=== PATIENT | female | born 1995 | race Caucasian/White ===

== ENCOUNTER → 2016-10-21 | Outpatient (CLI) | payer BC, OTHER ==
--- NOTE | 2016-10-21 17:59 | Diagnostic Imaging Report ---
Transabdominal and transvaginal pelvic ultrasound. INDICATION: Pelvic pain. FINDINGS: The uterus is 7.1 x 3.8 x 3.2 cm. The endometrial stripe is 0.1 cm in thickness. There is no focal mass seen. The right ovary is 3 x 1.8 x 1.6 cm. The left ovary is 2.7 x 2 x 1.2 cm. Arterial and venous waveforms are demonstrated over both ovaries. IMPRESSION: Unremarkable exam. Dictated by: Dictated on workstation # [id number]
== END ==
LOC: RAD 16:08
PROVIDERS: ATTEND Nurse Practitioner
DX: R10.2 Pelvic and perineal pain (principal)
CPT/HCPCS: 76830; 76856

== ENCOUNTER 2018-08-12 20:43 | Emergency (ER) | payer BC ==
[~2018-08-12] VITALS: Ht 157.5 cm; Wt 62.6 kg
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
--- OUTSIDE RECORDS SUMMARY | 2018-08-12 20:46 | XMS REPORT ---
Author Author GUANAKITO LIM Organization [facility] Address [address] [place] [address] Care Team Providers Care Instructor Flying Name Role Phone GUANAKITO LIM Unavailable PROBLEMS Type Condition ICD9-CM Code [id number] Code Onset Dates Condition Status SNOMED Code Problem Alcohol abuse F10.10 Active [id number] ALLERGIES Unknown Allergies SOCIAL HISTORY No smoking Hx information available PLAN OF CARE Activity Details Follow Up prn Reason: VITAL SIGNS MEDICATIONS Unknown Medications RESULTS Name Result Date Reference Range URINE DRUG SCREEN (IN HOUSE) 2016-04-01 Lot # [id number] Exp date 09/2017 Control + COCAINE neg AMPH neg MTD neg THC neg OPIATE neg BENZO neg PCP neg BAR neg OXY neg MAMP neg TCA n/a BUP neg MDMA neg PROCEDURES Procedure Date Ordered Related Diagnosis Body Site DRUG SCREEN NON TLC DEVICES Apr 01, 2016 AUDIT/DAST, OVER 30 MIN Apr 01, 2016 IMMUNIZATIONS No Known Immunizations
--- NOTE | 2018-08-12 21:14 | ED Abdominal Pain ---
General Chief Complaint: Abdominal/GI Problems Stated Complaint: L SIDE ABD PAIN Nursing Triage Note: PATIENT STATES THAT SHE HAS BEEN HAVING LLQ PAIN FOR SEVERAL DAYS. SHE TOOK LAXATIVE ON WEDNESDAY THINKING SHE MIGHT BE CONSTIPATED. LAST BM WEDNESDAY. SHE STATES IT IS NOW PAINFUL TO SIT AND/OR WALK. Sepsis Screen: No Definite Risk Source of Information: Patient Exam Limitations: No Limitations History of Present Illness Date Seen by Provider: Aug 12, 2018 Time Seen by Provider: 21:12 Initial Comments To ER with c/o LLQ abdominal pain x5 days. No nausea or vomiting. Pain worsens with straining to have bowel movement. States she is always constipated, nothing worse than usual. No history of this pain or of ovarian cysts. Timing/Duration: 4-5 Days Severity/Quality: Moderate Location: LLQ Radiation: No Radiation Activities at Onset: None Associated Symptoms: No Fever/Chills, No Nausea/Vomiting Allergies and Home Medications Allergies Coded Allergies: hydrocodone (Verified Allergy, Unknown, 08/12/18) Patient Home Medication List Home Medication List Reviewed: Yes Review of Systems Review of Systems Constitutional: see HPI; No chills, No fever EENTM: No Symptoms Reported Respiratory: No Symptoms Reported Cardiovascular: No Symptoms Reported Gastrointestinal: See HPI, Abdominal Pain, Constipated; Denies Diarrhea, Denies Nausea Genitourinary: No Symptoms Reported Musculoskeletal: no symptoms reported Skin: no symptoms reported Psychiatric/Neurological: No Symptoms Reported Endocrine: No Symptoms Reported Hematologic/Lymphatic: No Symptoms Reported Past Todmqfh-Izezmy-Nwgvje Hx Patient Social History Recent Foreign Travel: No Contact w/Someone Who Travel: No Recent Infectious Disease Expo: No Physical Exam Vital Signs Vital Signs - First Documented 08/12/18 20:50 Temp 97.6 Pulse 79 Resp 18 B/P (MAP) 105/69 (81) Pulse Ox 98 O2 Delivery Room Air Capillary Refill : Less Than 3 Seconds Height/Weight/BMI Height: 5'2.00" Weight: 138lbs. 0oz. 62.426221oo; BMI Method:Stated General Appearance: WD/WN, no apparent distress HEENT: PERRL/EOMI, normal ENT inspection Neck: non-tender, full range of motion Respiratory: no respiratory distress, no accessory muscle use Cardiovascular: regular rate, rhythm, no edema, no murmur Gastrointestinal: normal bowel sounds, soft, tenderness Extremities: normal range of motion, non-tender Neurologic/Psychiatric: alert, normal mood/affect, oriented x 3 Skin: normal color, warm/dry Progress/Results/Core Measures Results/Orders Lab Results Laboratory Tests Test 08/12/18 21:30 08/12/18 22:45 Range/Units White Blood Count 12.0 H 4.3-11.0 10^3/uL Red Blood Count 4.67 4.35-5.85 10^6/uL Hemoglobin 13.5 11.5-16.0 G/DL Hematocrit 40 35-52 % Mean Corpuscular Volume 86 80-99 FL Mean Corpuscular Hemoglobin 29 25-34 PG Mean Corpuscular Hemoglobin Concent 34 32-36 G/DL Red Cell Distribution Width 13.8 10.0-14.5 % Platelet Count 345 130-400 10^3/uL Mean Platelet Volume 9.0 7.4-10.4 FL Neutrophils (%) (Auto) 60 42-75 % Lymphocytes (%) (Auto) 30 12-44 % Monocytes (%) (Auto) 8 0-12 % Eosinophils (%) (Auto) 2 0-10 % Basophils (%) (Auto) 0 0-10 % Neutrophils # (Auto) 7.1 1.8-7.8 X 10^3 Lymphocytes # (Auto) 3.6 1.0-4.0 X 10^3 Monocytes # (Auto) 0.9 0.0-1.0 X 10^3 Eosinophils # (Auto) 0.2 0.0-0.3 10^3/uL Basophils # (Auto) 0.0 0.0-0.1 10^3/uL Sodium Level 139 135-145 MMOL/L Potassium Level 3.4 L 3.6-5.0 MMOL/L Chloride Level 105 98-107 MMOL/L Carbon Dioxide Level 22 21-32 MMOL/L Anion Gap 12 5-14 MMOL/L Blood Urea Nitrogen 14 7-18 MG/DL Creatinine 0.79 0.60-1.30 MG/DL Estimat Glomerular Filtration Rate > 60 BUN/Creatinine Ratio 18 Glucose Level 76 70-105 MG/DL Calcium Level 9.7 8.5-10.1 MG/DL Corrected Calcium 9.4 8.5-10.1 MG/DL Total Bilirubin 0.2 0.1-1.0 MG/DL Aspartate Amino Transf (AST/SGOT) 29 5-34 U/L Alanine Aminotransferase (ALT/SGPT) 41 0-55 U/L Alkaline Phosphatase 85 40-136 U/L Total Protein 7.4 6.4-8.2 GM/DL Albumin 4.4 3.2-4.5 GM/DL Serum Test, Qualitative NEGATIVE NEGATIVE My Orders Orders - FRANKLIN OSULLIVAN APRN Cbc With Automated Diff (08/12/18 21:02) Comprehensive Metabolic Panel (08/12/18 21:02) Hcg,Qualitative Serum (08/12/18 21:02) Ua Culture If Indicated (08/12/18 21:02) Iv Heplock-Insert (Order) (08/12/18 21:02) Ketorolac Injection (Toradol Injection) (08/12/18 21:15) Ct Abd/Pelvis Wo(Kidney Stone) (08/12/18 21:32) Rx-Tramadol Hcl (Rx-Ultram) (08/12/18 22:08) Medications Given in ED Current Medications Medications Dose Ordered Sig/Deepak Route Start Time Stop Time Status Last Admin Dose Admin Ketorolac Tromethamine 15 mg ONCE ONCE IVP 08/12/18 21:15 08/12/18 21:16 DC 08/12/18 21:34 15 MG Vital Signs/I&O 08/12/18 20:50 Temp 97.6 Pulse 79 Resp 18 B/P (MAP) 105/69 (81) Pulse Ox 98 O2 Delivery Room Air Blood Pressure Mean: 81 Departure Communication (Admissions) 2207-Pain present x1 week, US unavailable here at this time. Will need to have this evaluated with US on Wednesday. Pain has been present x5 days at this time. 2301-Left ovarian cyst on CT [id number]. Her pain is much improved she states after just toradol. Impression Primary Impression: Cyst of left ovary Disposition: HOME, SELF-CARE Condition: Stable Departure-Patient Inst. Decision time for Depature: 22:10 Referrals: BINH CARRENO DENNIS G MD SALVADOR, LISA A MD (PCP/Family) Primary Care Physician VETO MADRID ANGELA C DO Patient Instructions: Ovarian Cyst (DC) Add. Discharge Instructions: 1. Return to ER for any intolerable pain, lightheadedness, weakness, or other concerns. Follow up with your doctor on Wednesday to schedule an ultrasound of the ovary. Pain medication as needed. All discharge instructions reviewed with patient and/or family. Voiced understanding. Scripts No Active Prescriptions or Reported Meds Copy Copies To 1: LISANDRO SANCHES MD, PETER J APRN Aug 12, 2018 21:14
[2018-08-12] MEDS ORDERED: KETOROLAC 30 MG/ML VIAL IVP ONE (21:15)
[2018-08-12 21:40] LABS: BASOPHILS % (AUTO) 0 % (0-10); EOSINOPHILS # (AUTO) 0.2 10^3/uL (0.0-0.3); EOSINOPHILS % (AUTO) 2 % (0-10); HEMATOCRIT 40 % (35-52); HEMOGLOBIN 13.5 G/DL (11.5-16.0); LYMPHOCYTES # (AUTO) 3.6 X 10^3 (1.0-4.0); LYMPHOCYTES % (AUTO) 30 % (12-44); MEAN CORPUSCULAR HEMOGLOBIN 29 PG (25-34); MEAN CORPUSCULAR HGB CONC 34 G/DL (32-36); MEAN CORPUSCULAR VOLUME 86 FL (80-99); MONOCYTES # (AUTO) 0.9 X 10^3 (0.0-1.0); MONOCYTES % (AUTO) 8 % (0-12); NEUTROPHILS # (AUTO) 7.1 X 10^3 (1.8-7.8); NEUTROPHILS % (AUTO) 60 % (42-75); PLATELET COUNT 345 10^3/uL (130-400); RED CELL DISTRIBUTION WIDTH 13.8 % (10.0-14.5)
[2018-08-12 21:57] LABS: ALANINE AMINOTRANSFERASE 41 U/L (0-55); ALBUMIN 4.4 GM/DL (3.2-4.5); ALKALINE PHOSPHATASE 85 U/L (40-136); BILIRUBIN,TOTAL 0.2 MG/DL (0.1-1.0); BUN/CREATININE RATIO 18; CALCIUM 9.7 MG/DL (8.5-10.1); CARBON DIOXIDE 22 MMOL/L (21-32); CHLORIDE 105 MMOL/L (98-107); CREATININE SERUM 0.79 MG/DL (0.60-1.30); GFR ESTIMATED > 60; GLUCOSE 76 MG/DL (70-105); POTASSIUM 3.4 MMOL/L (3.6-5.0); SODIUM 139 MMOL/L (135-145); TOTAL PROTEIN 7.4 GM/DL (6.4-8.2)
[2018-08-12] MEDS ORDERED: RX-TRAMADOL 50 MG (ULTRAM) TAB PPK#4 PO STA (22:08)
[2018-08-12 22:51] LABS: BILIRUBIN,URINE NEGATIVE (NEGATIVE); CLARITY,URINE VERY CLOUDY; COLOR,URINE YELLOW; GLUCOSE, URINE (UA) NEGATIVE (NEGATIVE); KETONES,URINE NEGATIVE (NEGATIVE); LEUKOCYTE ESTERASE ,URINE 3+ (NEGATIVE); NITRITE,URINE NEGATIVE (NEGATIVE); PH,URINE 6.5 (5-9); PROTEIN,URINE 2+ (NEGATIVE); UROBILINOGEN,URINE NORMAL (NORMAL)
[2018-08-12 23:02] LABS: BACTERIA,URINE LARGE /HPF; WBC,URINE 50-100 /HPF
[2018-08-12 23:03] LABS: SQUAMOUS EPITHELIAL CELL,UR TNTC /HPF
[2018-08-12 23:07] VITALS: BP 105/69
[2018-08-12] MEDS ORDERED: CEFU250T80 PO (23:07)
[2018-08-12] MEDS ORDERED: CEPHALEXIN 250 MG (KEFLEX) CAP PO ONE (23:15)
--- NOTE | 2018-08-13 06:19 | Diagnostic Imaging Report ---
PROCEDURE: CT urinary tract, rule out kidney stone. TECHNIQUE: Multiple contiguous axial images were obtained through the abdomen and pelvis without the use of intravenous contrast. Auto Exposure Controls were utilized during the CT exam to meet ALARA standards for radiation dose reduction. INDICATION: Pain, constipation COMPARISON: None available FINDINGS: The lung bases are clear. The unenhanced liver, spleen, adrenal glands, and pancreas are unremarkable. The gallbladder is decompressed, therefore not well evaluated. The bilateral kidneys and ureters are unremarkable. A 6.1 cm left ovarian/adnexal cyst. The uterus and right adnexa are unremarkable. The urinary bladder is unremarkable. No aneurysmal dilatation of the abdominal aorta. The appendix is unremarkable. No bowel obstruction or pneumatosis. No significant adenopathy, free air, or free fluid throughout the abdomen or pelvis. No acute osseous abnormality. IMPRESSION: A 6 cm left ovarian/adnexal cyst. This may simply relate to a physiologic cyst, though followup is recommended. Recommend sonographic followup to ensure resolution. Otherwise, essentially unremarkable examination for age. Agree with preliminary interpretation. Dictated by: Dictated on workstation # [id number]
== END 2018-08-12 23:12 | disposition home or self-care (01) ==
LOC: EDUNIT# 20:43 → ER 20:44
DX: N83.202 Unspecified ovarian cyst, left side (principal); Z88.5 Allergy status to narcotic agent
CPT/HCPCS: 36415; 74176; 80053; 81000; 84703; 85025